=== PATIENT | male | born 1945 | race Caucasian/White ===

== ENCOUNTER → 2020-04-01 | Outpatient (REF) | payer MEDICARE | LOC: ZCOL.LAB 18:41 | DX: L89.302 Pressure ulcer of unspecified buttock, stage 2 (principal) ==

== ENCOUNTER → 2020-06-09 | Outpatient (CLI) | payer MEDICARE | LOC: ZCOL.LAB 07:11 | DX: L89.95 Pressure ulcer of unspecified site, unstageable (principal) ==

== ENCOUNTER 2020-07-14 17:33 | Emergency (ER) | payer MEDICARE ==
[~2020-07-14] VITALS: Ht 167.6 cm; Wt 70.5 kg
[2020-07-14 18:30] LABS: MEAN CELL VOLUME 80 fl (80.0-100.0); MEAN CORPUSCULAR HGB CONC 33 g/dl (33.0-37.0); MEAN PLATELET VOLUME 8.5 fl (7.4-10.4); PLATELET COUNT 614 K/mm3 (130-400); RED BLOOD COUNT 3.44 M/mm3 (4.20-5.60); REDCELL DISTRIBUTION WIDTH-CV 15.9 % (11.5-14.5)
[2020-07-14 18:32] LABS: HEMATOCRIT 27.5 % (42.0-52.0); MEAN CORPUSCULAR HEMOGLOBIN 26 pg (27.0-31.0)
[2020-07-14 18:50] LABS: LYMPHOCYTE 6 % (20.0-51.0); NEUTROPHILS 92 % (42.0-75.2)
[2020-07-14 18:51] LABS: ALBUMIN 3.3 gm/dL (3.5-5.0); ANISOCYTOSIS 1+; BILIRUBIN,TOTAL 0.8 mg/dL (0.0-1.0); CREATININE, serum 0.62 (0.66-1.25); HYPOCHROMIA 1+; MICROCYTOSIS 1+; POTASSIUM 3.2 mmol/L (3.4-5.0); TOTAL PROTEIN 6.9 gm/dL (6.4-8.2)
[2020-07-14 18:52] LABS: PLATELET ESTIMATE INCREASED (NORMAL)
[2020-07-14 18:57] LABS: OVALOCYTES 2+; SCHISTOCYTES 1+; SPHEROCYTE 1+
[2020-07-14 19:06] LABS: C-REACTIVE PROTEIN 14.8 mg/dL (0.0-0.9)
[2020-07-14 19:08] LABS: COLLECTION METHOD IN
[2020-07-14 19:15] LABS: PH 6 (5-8); SQUAMOUS EPITHELIAL 0-2 /hpf; URINE APPEARANCE Hazy; URINE BACTERIA Rare /hpf; URINE BILIRUBIN Negative (NEGATIVE); URINE BLOOD Negative (NEGATIVE); URINE COLOR Yellow; URINE GLUCOSE Negative (NEGATIVE); URINE KETONE Negative (NEGATIVE); URINE LEUKOCYTE ESTERASE 1+ (NEGATIVE); URINE NITRATE Negative (NEGATIVE); URINE PROTEIN(semi-quant) Negative (NEGATIVE); URINE UROBILINOGEN >=4.0 mg/dL (NEGATIVE)
[2020-07-14 21:40] VITALS: BP 124/78; PULSE 110; TEMP 98.2
[2020-07-15 07:58] LABS: PATHOLOGY DIFF REVIEW OK
== END 2020-07-14 21:40 | disposition short-term general hospital (02) ==
LOC: COL.ER 17:33
PROVIDERS: Nurse Practitioner
DX: L02.31 Cutaneous abscess of buttock (principal); M86.8X8 Other osteomyelitis, other site; A41.9 Sepsis, unspecified organism; Z20.822 Contact with and (suspected) exposure to COVID-19
CPT/HCPCS: J2543; J3370; J7030; J7050